=== PATIENT | female | born 1950 | race Caucasian/White ===

== ENCOUNTER → 2023-12-19 06:23 | Day surgery (SDC) | payer OTHER, SELFPAY | LOC: GI 06:23 | PROVIDERS: ATTENDING PHYSICIAN Internal Medicine Gastroenterology | DX: Z12.11 Encounter for screening for malignant neoplasm of colon (principal); K62.1 Rectal polyp; D12.2 Benign neoplasm of ascending colon | CPT/HCPCS: 45385; 45380; 88305 ==

== ENCOUNTER → 2025-08-24 10:08 | Outpatient (REF) | payer OTHER, SELFPAY | LOC: RAD 10:08 | PROVIDERS: ATTENDING PHYSICIAN Internal Medicine Rheumatology; FAMILY PHYSICIAN Family Medicine | DX: R29.890 Loss of height (principal) | CPT/HCPCS: 72072; 72100 ==